=== PATIENT | female | born 1940 | race Caucasian/White ===

== ENCOUNTER 2022-04-16 12:04 | Outpatient (CLI) | payer MEDICARE | END 2022-04-16 12:05 | disposition home or self-care (01) | LOC: CT 12:04 | PROVIDERS: ATTEND Thoracic Surgery (Cardiothoracic Vascular Surgery) | DX: I65.23 Occlusion and stenosis of bilateral carotid arteries (principal); R91.8 Other nonspecific abnormal finding of lung field | CPT/HCPCS: 70498; 82565 ==